=== PATIENT | male | born 1950 | race Caucasian/White ===

== ENCOUNTER 2016-12-21 05:39 | Inpatient (IN) ==
[2016-12-21] MEDS ORDERED: *HR* Heparin 5,000 UNIT/ML VIAL IVP PRN ×2 (08:00)
[2016-12-21] MEDS ORDERED: 0.9 % Sodium Chloride 1,000 ML IVC SCH (08:00)
[2016-12-21] MEDS ORDERED: Heparin 25,000 UNIT/500 ML D5W 25,000 UNIT/500 ML MLS IVC SCH (08:00)
[2016-12-21] MEDS ORDERED: *HR* Morphine 2 MG/ML SYRINGE IVP PRN ×3 (08:03→08:44)
[2016-12-21] MEDS ORDERED: Acetaminophen 325 MG TABLET PO PRN (08:05)
[2016-12-21] MEDS ORDERED: Ondansetron 4 MG/2 ML VIAL IVP PRN (08:05)
[2016-12-21] MEDS ORDERED: Naloxone 0.4 MG/ML INJ IVP PRN (08:05)
[2016-12-21] MEDS ORDERED: MOM Conc 10 ML UD.LIQ PO PRN (08:05)
[2016-12-21] MEDS ORDERED: *HR* LORazepam 2 MG/ML VIAL IVP PRN (08:13)
[2016-12-21] MEDS: Nicotine 21 MG PATCH.TD24 TD SCH (08:36)
--- NOTE | 2016-12-21 08:40 | Internal Med History&Physical ---
<Vanessa Guerin - Last Filed: 12/21/16 11:22> Date of Encounter: 12/21/16 Time of Encounter: 07:50 Assessment and Plan (1) NSTEMI (non-ST elevated myocardial infarction) Current visit: No Status: Acute Pt has a 2 day history of R shoulder pain that awakened him at 0250 this a.m. Pt also reports mid-sternal chest pressure/heaviness without radiation. Pain is constant, 7/10. Also reports diaphoresis and nausea this a.m, no SOB. These symptoms are consistent with the symptoms of his previous NH, for which he had 2 stents placed at [place] 5 years ago. Pt took aspirin 325mg prior to going to ED. He became hypotensive after 1 NTG sl, resolved after 250ml bolus of IVF. He was given morphine in the ED that he states gave him "some" relief, but pain is back to baseline on arrival to this facility. He was given a heparin bolus and gtt was started in ED, which we will continue. Pt does not take beta chiqui or Plavix currently, they were stopped by his PCP after being on them for some time. He also states that he took Lipitor previously but stopped it due to myalgias, will start on Zocor. Heparin gtt Monitor labs Stat troponin on arrival Stat EKG Morphine 2mg IVP q 4hr prn chest pain consult cardiology Lipid panel A1c Metoprolol 12.5mg po bid ASA 81mg po daily (2) Chest pain Current visit: Yes Status: Acute Plan as above Qualifiers: Chest pain type: chest pain due to myocardial ischemia Ischemic chest pain type: unstable angina pectoris Qualified Code(s): I20.0 - Unstable angina (3) HTN (hypertension) Current visit: Yes Status: Chronic Pt takes Lisinopril 5mg po daily. Will continue. His blood pressure has been WNL so far this admission. Lisinopril 5mg po daily Metoprolol 12.5mg po bid Qualifiers: Hypertension type: essential hypertension Qualified Code(s): I10 - Essential (primary) hypertension (4) ETOH abuse Current visit: Yes Status: Chronic Pt admits to drinking 5 beers daily for "years", however did drink 10 last pm since he had company. He states that he can go a day without drinking without symptoms of withdrawl, but he chooses not to. Ativan prn/ CIWA protocol. (5) Tobacco abuse Current visit: Yes Status: Chronic Currently pt smokes 1 1/2 PPD. He has been an intermittent smoker since high school, but has quit for many years then would start again. He estimates that he has smoked about 25 years total. He is not interested in smoking cessation, however, we should provide it prior to discharge. Nicotine patch during admission Smoking cessation education Internal Medicine - H&P: HPI Chief complaint: chest pain, arm pain x 2 days Admitted From: Home Plans for Post Hospital Care: Home History of present illness: Mr. Bear is a 66 year old male with history of previous NH and stent placement 5 years ago, HTN, iliac artery aneurysm, and atherosclerosis. He has a 2 day history of R arm and shoulder pain that awakened him this am at 0250. He took his bp at that time and was hyptensive, 70s/40s. Pt got up from bed and began having midsternal constant 7/10 chest pain, described as heaviness or pressure and he got minimal relief with morphine in [facility]. These symptoms are consistent with the symptoms he had with his prior NH. Before calling EMS, he was diaphoretic and nauseated, denies SOB. He was on Plavix and a beta chiqui after last NH and PCP d/cd it after being on it for a few years. Pt also took Lipitor in the past and stopped taking it due to myalgias. EKG showed T wave inversion in leads I, AVL, and V6, incomplete bundle branch block, and no ST elevation. Initial troponin was 0.11ng/dl, repeat done stat after assessment, as well as stat EKG for continued chest pain. Pt was given NTG sl at [facility] which his BP did not tolerate and ASA 325mg was taken by patient before he went to the ED. He received a 4,000unit bolus of heparin in the ED and a drip was started which we will maintain. Cardiology was consulted when he arrived. He is a 1 1/2 PPD smoker and admits to drinking 5 beers daily. Past Med Surg Social Fam HX - Past Medical History Medical history: hypertension, myocardial infarction Psychiatric history: no psych history - Social History Smoking Status: Never smoker Smokeless Tobacco Status: No Alcohol use: recent Drug use: none - Family History Mother Name: Parul Age: 60 Family Member Ethnicity: Non- Living Status: Age at : 60 Cause of : breast cancer Internal Medicine - H&P: Meds Ascorbic Acid [Vitamin C] 100 mg PO QAM 12/21/16 [History] Aspirin [Ecotrin] 325 mg PO QAM 12/21/16 [History] Lisinopril [Zestril] 5 mg PO DAILY 12/21/16 [History] Multivitamin [Multivitamins] 1 cap PO QAM 12/21/16 [History] Ubidecarenone [Coq10] 50 mg PO QAM 12/21/16 [History] Allergies No Known Allergies Allergy (Verified 12/21/16 04:50) All Systems PM: A 10-system review of systems was performed and is negative for pertinent findings except as documented above in the HPI. - Constitutional Constitutional: no excessive sweating, no fatigue, no fever(s), no night sweats , no weakness - Cardiovascular Cardiovascular ROS IM: chest pain, diaphoresis, no dyspnea, no edema, no irregular heart rhythm, no lightheadedness, no orthopnea, no palpitations, no syncope - Respiratory Respiratory: no cough, no dyspnea, no wheezing, no pain on inspiration, no chest congestion - Gastrointestinal Gastrointestinal: loose stools, nausea, no vomiting - Musculoskeletal Musculoskeletal ROS IM: myalgias Additional comments: Pt c/o R shoulder pain for last 2 days, that pain awakend him this a.m. - Constitutional Vitals: Temp Pulse Resp BP Pulse Ox 97.8 F 83 16 134/91 96 12/21/16 08:05 12/21/16 08:05 12/21/16 08:05 12/21/16 08:05 12/21/16 08:05 General appearance: Present: cooperative, A&O X 3, pleasant, no acute distress - ENT ENT exam: Present: mucous membranes moist, normal exam - Neck Neck exam general surgery: Absent: lymphadenopathy, tenderness - Respiratory Respiratory exam: Present: CTAB. Absent: accessory muscle use, chest wall tenderness, decreased breath sounds, respiratory distress - Cardiovascular Cardiovascular exam: Present: RRR, +S1, +S2. Absent: diastolic murmur, JVD, systolic murmur - GI/Abdominal GI/Abdominal exam: Present: hyperactive bowel sounds, soft. Absent: tenderness - Extremities Exam Extremities exam: Present: full ROM, normal capillary refill, normal inspection , warm, radial pulses palpable and symetrical. Absent: calf tenderness, pedal edema, tenderness Additional comments: Roshan pedal pulses palpable, +2 - Neurological Exam Neurological exam: Present: alert, oriented X3, no focal deficits, strengths equal and symetr throughout <Maricruz Fernandez - Last Filed: 12/21/16 11:36> Internal Medicine - H&P: HPI History of present illness: Mr. Bear is a 66 year old male All Systems PM: A 10-system review of systems was performed and is negative for pertinent findings except as documented above in the HPI. - Constitutional Vitals: Temp Pulse Resp BP Pulse Ox 97.8 F 83 16 134/91 96 12/21/16 08:05 12/21/16 08:05 12/21/16 08:05 12/21/16 08:05 12/21/16 08:05 Internal Med - H&P Results - Labs Labs: Cardiac Enzymes 12/21/16 Range/Units 08:22 Troponin I 0.35 H* (0-0.03) ng/mL - Attending Attestation I examined this patient and reviewed laboratory, imaging and all diagnostic data. My medical decision-making was reviewed with JLUIS Guerin. I agree with the documented findings, disposition and treatment plan as described above. 66- year-old male with past medical history of CAD status post stents in the past who comes with chest pain. In [facility] ED, troponin was 0.11. EKG showed T- wave inversion in lead I, AVL, V5-V6. Chest dementia no acute process. Physical examination reveals chest CTAB, heart RRR, no LE edema. He was started on heparin drip and received nitroglycerin sublingual. Shortly after, he developed hypotension and was given IV fluids. He admits being noncompliant with medical patients. A/p 1. Non-STEMI. I spoke with cardiology and they recommended nothing by mouth, continue IVF and heparin drip. They will evaluate the patient for LHC. ASA, metoprolol and zoco given history of myalgias with lipitor. 2. HTN. holding home dose of lisinopril.
--- NOTE | 2016-12-21 09:38 | Cardiology Consult Note ---
Date of Encounter: 12/21/16 Time of Encounter: 09:38 Assessment and Plan (1) NSTEMI (non-ST elevated myocardial infarction) Current Visit: No Status: Acute Troponin 0.11, 0.35. Pt with now bilateral shoulder pain and midsternal chest heaviness/pressure. Similar to previous [place]. Chest pain /10. BP did not tolerate nitro. Vitals stable. EKG changes that indicate ischemia--ST depression. Recommend [facility]. R/B/A discussed and pt is agreeable. [facility] today. Check echo to evaluate structure and function. Continue heparin gtt. Continue ASA, Statin, BB. Plavix load. (2) CAD (coronary artery disease) Current Visit: Yes Status: Acute Hx of RCA stents 5 years ago. ASA, Plavix, Statin, BB. Qualifiers: Coronary Disease-Associated Artery/Lesion type: rincon artery [place] vs. transplanted heart: rincon heart Associated angina: with unstable angina Qualified Code(s): I25.110 - Atherosclerotic heart disease of rincon coronary artery with unstable angina pectoris (3) HTN (hypertension) Current Visit: Yes Status: Chronic Currently controlled. Continue to monitor and adjust as necessary. Qualifiers: Hypertension type: essential hypertension Qualified Code(s): I10 - Essential (primary) hypertension (4) Iliac artery aneurysm, right Current Visit: Yes Status: Chronic Testing reviewed from 2014--CT ABD/Pelvis showed aneurysmal dilation of right common iliac artery 3.8 x 3.9. US showed it was partially thrombosed. Saw vascular 10/2015 to follow-up on results. No follow-up since then. Was supposed to have had a repeat CT 6 months from that time. Recommend rechecking. Discussion w patient/family: The assessment and plan as outlined above was discussed with the patient and/or family members who expressed understanding and agreement. All questions were answered. Thank you for involving us in the care of your patient. Please call with any questions. I will discuss all the above with Dr. Cherry and make changes as necessary. History of Present Illness Consult date: 12/21/16 Requesting physician: Vanessa Guerin Consult reason: NSTEMI Chief complaint: Chest pain History of present illness: Mr. Bear is a 66 year old male with hx of CAD s/p [place] and stent placement 5 years ago at [place], HTN, iliac artery aneurysm, and atherosclerosis. He has a 2 day history of R arm and shoulder pain that awakened him this am at 0250. He took his bp at that time and was hypertensive. 20 minutes later he began having midsternal constant 7/10 chest pain, described as heaviness/pressure and he got minimal relief with morphine in [place] ED. These symptoms are consistent with the symptoms he had with his prior [place]. Before calling EMS, he was diaphoretic and nauseated, denies SOB. He was on Plavix and a beta chiqui after last [place] and PCP d/cd it after being on it for a few years. Pt also took Lipitor in the past and stopped taking it due to myalgias. EKG showed T wave inversion in leads I, AVL, and V6. Initial troponin was 0.11, then 0.35. Pt was given NTG sl at [place] ED which his BP did not tolerate and ASA 325mg was taken by patient before he went to the ED. He received a 4,000unit bolus of heparin in the ED and a drip was started. Cardiology has been consulted. CP currently 7/ 10, stable, resting in bed. Past Med Surg Social Fam HX - Past Medical History Medical history: coronary artery disease, hypertension, myocardial infarction Psychiatric history: no psych history - Past Surgical History Surgical History: angioplasty/stent - Social History Smoking Status: Never smoker Smokeless Tobacco Status: No Alcohol use: recent Drug use: none - Family History Mother Name: Parul Age: 60 Family Member Ethnicity: Non- Living Status: Age at : 60 Cause of : breast cancer Medications and Allergies Ascorbic Acid [Vitamin C] 100 mg PO QAM 12/21/16 [History] Aspirin [Ecotrin] 325 mg PO QAM 12/21/16 [History] Lisinopril [Zestril] 5 mg PO DAILY 12/21/16 [History] Multivitamin [Multivitamins] 1 each PO QAM 12/21/16 [History] Ubidecarenone [Coq10] 50 mg PO QAM 12/21/16 [History] Allergies No Known Allergies Allergy (Verified 12/21/16 04:50) All Systems Review: A 10-system review of systems was performed and is negative for pertinent findings except as documented above in the HPI. - Cardiovascular Cardiovascular: as per HPI, chest pain at rest, chest pain with exertion, diaphoresis, radiating jaw, neck or arm pain - Gastrointestinal Gastrointestinal: nausea Physical Examination Vital Signs, Last 4 Hours Temp Pulse Resp BP Pulse Ox 12/21/16 08:05 97.8 F 83 16 134/91 96 Vital Signs Temp Pulse Resp BP Pulse Ox 12/21/16 08:05 97.8 F 83 16 134/91 96 Intake and Output 12/20/16 12/21/16 12/21/16 23:59 07:59 15:59 Other: Weight 69.4 kg Patient Weight 12/21/16 23:59 Weight 69.4 kg General: Conversant, No Apparent Distress HEENT: Atraumatic, Normocephaly, Mucus Membranes Moist Neck: No JVD, Normal carotid pulses Cardiac: Reg Rate and Rhythm, Normal S1 and S2, No Murmur Lungs: Normal Breath Sounds, No Wheeze, Rales, Rhonchi Neuro: Alert and responsive, No focal deficits noted Abdomen: Soft, Non-Tender Skin: No rashes noted on visualized skin Musculoskeletal: No Chest Wall Tenderness Extremities: No Clubbing, No Cyanosis, No Edema, Normal Pulses Results Lab Results 12/21/16 08:22 Troponin I 0.35 H* Cardiac Enzymes 12/21/16 Range/Units 08:22 Troponin I 0.35 H* (0-0.03) ng/mL - Imaging and Cardiology Chest Xray: report reviewed - EKG Interpretation EKG results cardiology: personally reviewed (New ST depression noted, SR) Consult Discharge Plan - Plan Referrals: NO,PCP [Primary Care Provider] -
[2016-12-21] MEDS ORDERED: Heparin 1,000 UNITS/500 mL NS 500 ML ONE (10:18)
[2016-12-21] MEDS ORDERED: *HR* FentaNYL (PF) 100 MCG/2 ML VIAL ONE (10:18)
[2016-12-21] MEDS ORDERED: *HR* Midazolam HCl 2 MG/2 ML VIAL ONE (10:18)
[2016-12-21] MEDS ORDERED: 0.9 % Sodium Chloride 1,000 ML ONE ×2 (10:18→10:51)
[2016-12-21] MEDS ORDERED: Nitroglycerin 1,000 MCG/10 ML VIAL IV ONE (10:19)
[2016-12-21] MEDS ORDERED: *HR* Heparin 10,000 UNIT/10 ML VIAL ONE (10:19)
--- NOTE | 2016-12-21 10:47 | Pre-Sedation Evaluation ---
Pre-sedation evaluation - Pre-sedation checklist Date of procedure: 12/21/16 Procedure: Heart Cath Recent Vitals: Last Vital Signs Temp 97.8 F 12/21/16 08:05 Pulse 83 12/21/16 08:05 Resp 16 12/21/16 08:05 BP 134/91 12/21/16 08:05 Pulse Ox 96 12/21/16 08:05 H&P (including ROS) documented in medical record: Yes Previous reaction to sedatives/anesthetics: No Dietary Status: NPO after Midnight Dentition: No loose teeth or bridges Possible difficult airway: No ASA Classification *see protocol: CLASS III-Severe systemic disease Plan of Care: Pt appropriate candidate for procedure/moderate/conscious sedation , Risks/benefits of procedure/sedation discussed w/ patient/family, If not NPO; Risk of intake outweiged by necessity to perform procedure
[2016-12-21] MEDS ORDERED: Tirofiban 5 MG/100ML 0 MG/0 ML BAG IV ONE (11:04)
[2016-12-21] MEDS ORDERED: *HR* Bivalirudin 250 MG VIAL IVC ONE (11:10)
[2016-12-21] MEDS ORDERED: *HR* Ticagrelor 90 MG TABLET ONE (11:32)
[2016-12-21] MEDS ORDERED: Ondansetron 4 MG/2 ML VIAL ONE (11:33)
--- NOTE | 2016-12-21 11:56 | Invasive Diagnostic Lab ---
Name: Luca Bear Date of Study: 12/21/2016 Date: 1950 Ht: 163.0 cm /64.2 in Medical Record#: [id number] Age: 66 Wt: 69. kg / 152.12 lb Account/Order#: [id number] Gender: Male BSA: 1.74 Order #: [id number] Fluoro Dose: 28 mGy BMI: 25.97 Procedure Physician: Power Gray MD Referring MD: Referring MD: Procedures Performed: LEFT HEART CATH Stent w/ PTCA Single Major Vessel Indications: Non-Stemi Impressions: There is severe one vessel coronary artery disease. The left ventricle is normal and has normal contractility EF 55% Patient had successful PTCA/Drug-Eluting Stent placement in the mid RCA. Recommendations: Optimal medical therapy of patient's disease.. Aggressive risk factor modification. Patient being referred for cardiac rehab. History/Risk Factors: CAD Hypertension Prior [place] Previous PCI Procedure Access obtained in the left Femoral artery by percutaneous puncture Patient had successful PTCA/Drug-Eluting Stent placement in the mid RCA. Complications: None Contrast: Isovue 130ml Closure Device: Perclose ProGlide Hemodynamics: Pressures Site Systolic/ A Wave Diastolic/ V Wave End Diastolic/ Mean HR AO 127 79 99 84 AO 107 86 96 82 LV 131 6 16 87 LV 106 42 54 89 AO 116 92 104 90 LV Ventriculography Ejection Method: LV Gram Ejection Fraction: 55% Wall Motion: GUEVARA Anterobasal Normal Anterolateral Normal Apical: Normal Inferoapical Normal Inferobasal Mild Hypokinesis Coronary Dominance: right Lesion Findings/Interventions * Left Main Coronary Artery There is a 20% stenosis in the LMCA. * Left Anterior Descending There is a 20% stenosis in the Mid LAD. There is a 50% stenosis in the 1st Diagonal. * Circumflex There is a 20% stenosis in the Mid Circumflex. There is a 20% stenosis in the 1st Marginal. * Right Coronary Artery The Proximal RCA has patent stents present from a previous procedure. There is a 20 mm long, 100% stenosis in the Mid RCA. The lesion has a RAVI flow of 0 and has no thrombus present. An intervention was performed on the Mid RCA with a final stenosis of 0%. There were no lesion complications. The final RAVI flow was 3. Interventional Device(s) Vessel Segment Type Name Diameter (mm) Length (mm) Mid RCA Balloon Emerge Monorail 2.5 20 Mid RCA Drug Eluting Stent Promus Premier Rx 2.75 20 Mid RCA Balloon Emerge Monorail 2.75 20 Mid RCA Balloon NC Emerge 2.75 20 Updated by Chanelle Liriano RT (R) on 12/21/2016 11:49:05 AM Power Gray MD electronically signed on 12/21/2016 11:50:24 AM with status of Final
--- NOTE | 2016-12-21 11:56 | Invasive Diagnostic Lab Proc ---
Name: Luca Bear Date of Study: 12/21/2016 Date: 1950 Ht: 64.2in Medical Record#: [id number] Age: 66 Wt: 152.12lb Gender: Male BSA: 1.74 Order #: [id number] BMI: 25.97 Physicians Procedure Physician: Power Gray MD Referring MD: Referring MD: Staff Name Position Time In Sites, Chanelle RT (R) Monitor 10:59 AM Daya Castillo RT Scrub 10:59 AM Brian Diaz RN Net Ui Developer 10:59 AM Indications Indication Non-Stemi Procedures Performed Procedure L HRT ARTERY/VENTRICLE ANGIO PRQ CARD ROSA STENT W/ANGIO 1 VSL Pre-Procedure Checklist Informed consent is complete signed and on chart. H\\T\\P is on chart. ID band is on and ID verified with patient. Patient NPO for procedure The procedure was described for the patient and questions were answered. Blood Pressure: 134/91 ECG is on chart. Plan of Care Patient will tolerate the procedure without complications. Adequate level of comfort will be maintained. Hemodynamics will remain stable Patient will recover from procedure without complications. Respiratory function will be maintained. Cardiac rhythm will remain stable. Patient temperature will be maintained. Patient and/or family have verbalized understanding of the procedure. Patient Education Chief Complaint/Reason for Test: Cardiac Cath Developmental Category: Geriatric (65+ years) Developmentally Appropriate for Age: Yes Learning Barriers: None Education Needs: Procedure Education Method: Verbal Information Taught: Cardiac Cath Educational Evaluation: Able to repeat information Intravenous Access Time IV Size Location DC'd Fluid/Drip Rate Units RN 10:35 AM 20g 1 11/20" Patent On Arrival Lt Arm 0.9NaCl 25 ml/hr Brian Diaz RN Allergies No Known Allergies Vital Signs Time BP (mmHg) HR (bpm) O2 Sat. RR (bpm) LOC 10:36 AM 134 / 91 83 96 % 16 5 = Fully awake and oriented or at pre-proc level 11:01 AM / % 5 = Fully awake and oriented or at pre-proc level 10:56 AM 117 / 73 70 95 % 13 11:01 AM 132 / 88 76 98 % 21 11:06 AM 125 / 81 89 86 % 18 11:11 AM 135 / 89 89 98 % 16 11:17 AM 96 / 74 50 100 % 15 11:20 AM 87 / 54 69 99 % 14 11:21 AM 91 / 62 49 98 % 13 11:23 AM 82 / 54 74 99 % 15 11:26 AM 97 / 60 71 98 % 16 11:32 AM 128 / 69 72 99 % 19 11:37 AM 134 / 78 74 98 % 17 Procedural Medications Time Medication Dose Units Method Given By 11:00 AM Oxygen 2 L/min nasal cannula Brian Diaz RN 11:00 AM Versed 1 mg Intravenous Brian Diaz RN 11:01 AM Fentanyl 50 mcg Intravenous Brian Diaz RN 11:02 AM Lidocaine 2% 18 ml Subcutaneous Power Gray MD 11:03 AM Versed 1 mg Intravenous Brian Diaz RN 11:03 AM Fentanyl 50 mcg Intravenous Brian Diaz RN 11:06 AM Oxygen 5 L/min nasal cannula Brian Diaz RN 11:13 AM Angiomax 0.75mg/kg bolus: 10.5 ml Intravenous Brian Diaz RN 11:13 AM Angiomax 1.75mg/kg/hr: 24.5 ml Intravenous Brian Diaz RN 11:24 AM Dopamine 10 mg/kg/min Intravenous Brian Diaz RN 11:34 AM Dopamine 2.5 mg/kg/min Intravenous Brian Diaz RN 11:35 AM Zofran 4 mg Intravenous Brian Diaz RN 11:35 AM Brilinta 180 mg Orally Brian Diaz RN 11:37 AM Dopamine mg Dc'd Brian Diaz RN Thea Score Preprocedure Postprocedure Activity 2- Moves 4 extremities sustained head lift Activity 2- Moves 4 extremities sustained head lift Circulation 2- SBP +/= 20 points of pre-anesthetic level Circulation 2- SBP +/= 20 points of pre-anesthetic level Consciousness 2- Awake and alert oriented x 3 Consciousness 2- Awake and alert oriented x 3 O2 Saturation 2- Able to maintain O2 satruation of 92% on room air O2 Saturation 2- Able to maintain O2 satruation of 92% on room air Respiratory 2- Able to deep breathe and cough well Respiratory 2- Able to deep breathe and cough well Total Score 10 Total Score 10 Contrast Agent: Isovue Diagnostic Contrast: 130 ml Total Contrast: 130 ml Fluoro Dose: 28 mGy Procedure Log Time Note Enter By 10:32 AM CathStat 10:56 AM Vitals capture started with the following parameters, Patient=Adult, Interval=5 min, Initial Yjylcrjs=748 mmHg, Deflation Rate=5 mmHg, Cuff placed on Left Leg 10:56 AM Case Start 10:56 AM HR=70 bpm, EVMK=934/73 mmhg, SpO2=95.0 %, Resp=13 B/min, Comment=nsr 10:59 AM Pt arrived to laborer demolition 2 at 10:58 csmith 10:59 AM Recorded ECG: HR=55 Condition=Condition 1 10:59 AM Chanelle Liriano RT (R) Position: Monitor Time in: :59 csmith 10:59 AM Daya Castillo RT Position: Scrub Time in: :59 csmith 10:59 AM Brian Diaz RN Position: Net Ui Developer Time in: 10:59 csmith 10:59 AM Patient charges- Angio tray pack, Navilyst 3mm J, Pulse Oximetry and ACIST tubing and transducer csmith 10:59 AM Case Delayed No csmith 10:59 AM Physician arrived 10:59 csmith 10:59 AM Sign in performed according to hospital policy. csmith 10:59 AM Procedure start 10:59 csmith 11:00 AM Hair removed from procedure site in procedure lab using clippers. Bilateral groin prepped with Chloraprep by Chanelle Liriano (R) then patient draped. Skin intact. csmith 11:00 AM Time: 11:00 Oxygen on at 2 L/min per nasal cannula by Brian Diaz RN [facility] 11:00 AM Time: 11:00 Versed 1 mg Intravenous Given by Brian Diaz RN [facility] 11:00 AM Pressure channel 1 zero failed. 11:01 AM Pressure channel 1 zeroed. 11: AM Time: 11: Fentanyl 50 mcg Intravenous Given by Brian Diaz RN [facility] 11: AM Time: 11:01 Patient comfortable and pain free: Yes csmith 11:01 AM HR=76 bpm, ZYLL=314/88 mmhg, SpO2=98.0 %, Resp=21 B/min 11:01 AM Time: 11:LOC: 5 = Fully awake and oriented or at pre-proc level csmith 11:02 AM Clinical Presentation: Non-STEMI csmith 11:02 AM Time out performed according to hospital policy [facility] 11:02 AM Time: 11: 18 ml Lidocaine 2% to left groin Subcutaneous Given by Power Gray MD [facility] 11:03 AM Access obtained by percutaneous puncture. 6Fr 10cm Terumo [place] sheath placed in left Femoral artery. [id number] [facility] 11:03 AM Time: 11:03 Versed 1 mg Intravenous Given by Brian Diaz RN [facility] 11:03 AM Time: 11:03 Fentanyl 50 mcg Intravenous Given by Brian Diaz RN [facility] 11:03 AM 0.035 145cm Navilyst 3mmJ wire [id number] [facility] 11:04 AM 5Fr FL 4 catheter inserted over the wire [facility] 11:04 AM Wire removed [facility] 11:04 AM Recorded Pressure: Ao, HR=84, Condition=Condition 1 (Aorta) Ao 127/79/99 11:04 AM LCA angiography performed in multiple views. [facility] 11:06 AM Time: 11:06 Oxygen on at 5 L/min per nasal cannula by Brian Diaz RN [facility] 11:06 AM wire reinserted catheter removed [facility] 11:06 HR=89 bpm, QVFF=496/81 mmhg, SpO2=86.0 %, Resp=18 B/min 11:07 AM 5Fr FR 4 catheter inserted over the wire [facility] 11:07 Wire removed [facility] 11:07 RCA angiography performed in multiple views. [facility] 11:07 AM Recorded Pressure: Ao, HR=82, Condition=Condition 1 (Aorta) Ao 107/86/96 11:09 AM wire reinserted catheter removed [facility] 11:09 AM 5Fr Pigtail catheter inserted over the wire [facility] 11:09 AM Catheter selectively placed in left [facility] 11:10 AM Bolus angiogram of left Ventricle complete: 10 ml/sec for a total of 20 mls [facility] 11:10 AM Recorded Pressure: LV, HR=87, Condition=Condition 1 (Left Ventricle) LV 131/6/16 11:11 AM Recorded Pressure: LV, Ao, HR=90, Condition=Condition 1 (Left Ventricle) LV 106/42/54, (Aorta) Ao 116/92/104 11:11 AM wire reinserted catheter removed [facility] 11:11 AM HR=89 bpm, TRDU=467/89 mmhg, SpO2=98.0 %, Resp=16 B/min 11:12 AM PCI Status Urgent [facility] 11:12 AM PCI Indication: PCI for high risk Non-STEMI or unstable ang[facility] 11:12 AM PCI lesion in Mid RCA. Pre Stenosis: 100 Pre RAVI Flow: tsites 11:12 AM PCI lesion in Mid RCA. tsites 11:12 AM 6Fr JR 4 Runway guide catheter was used to cannulate the PCI vessel successfully. reused? No tsites 11:12 AM Inflation device was opened. tsites 11:13 AM .014 Prowater 180cm guide wire across target lesion- successful. reused? No tsites 11:13 AM Time: 11:13 Angiomax 0.75mg/kg bolus: 10.5 ml Intravenous Given by Brian Diaz RN Larsen pump tsites 11:13 AM Time: 11:13 Angiomax 1.75mg/kg/hr: 24.5 ml Intravenous Given by Brian Diaz RN Larsen pump tsites 11:14 AM Coronary Dominance: right tsites 11:14 AM Lesion found in LMCA. Pre Stenosis: 20 Pre RAVI Flow: tsites 11:14 AM Lesion found in Mid LAD. Pre Stenosis: 20 Pre RAVI Flow: tsites 11:14 AM Lesion found in 1st Diagonal. Pre Stenosis: 50 Pre RAVI Flow: tsites 11:14 AM Lesion found in Mid Circumflex. Pre Stenosis: 20 Pre RAVI Flow: tsites 11:15 AM Lesion found in 1st Marginal. Pre Stenosis: 20 Pre RAVI Flow: tsites 11:15 AM Left Main Coronary Artery with 20% stenosis tsites 11:15 AM Mid/Distal Left Anterior Descending Coronary Artery and diagonal branches with 50% stenosis. If graft is supplying this area, % stenosis tsites 11:15 AM Circumflex, Obtuse Marginal, Left Posterior Descending, and Left Posterolateral Coronary Arteries with 20 % stenosis. If graft is supplying this area, % stenosis tsites 11:15 AM Right Coronary, Right Posterior Descending Arteries with Right Posterolateral and Acute Marginal branches with 100 % stenosis. If graft is supplying this area, % stenosis tsites 11:17 AM HR=50 bpm, NIBP=96/74 mmhg, HkA5=388 %, Resp=15 B/min 11:18 AM 2.5 mm x 20 mm Emerge Monorail balloon across target lesion- successful. reused? No tsites 11:19 AM Balloon inflated @ 16 marcie for 18 seconds tsites 11:20 AM Balloon catheter removed intact. tsites 11:20 AM NIBP STAT measurement started. 11:20 AM 2.75mm x 20mm Promus Premier Rx drug-eluting stent across target lesion- successful Lot #[id number] tsites 11:20 AM HR=69 bpm, NIBP=87/54 mmhg, SpO2=99 %, Resp=14 B/min 11:21 AM HR=49 bpm, NIBP=91/62 mmhg, SpO2=98 %, Resp=13 B/min 11:22 AM .014 High-Torque Iron man 190cm guide wire across target lesion- successful. reused? No tsites 11:22 AM NIBP STAT measurement started. 11:23 AM HR=74 bpm, NIBP=82/54 mmhg, SpO2=99 %, Resp=15 B/min 11:23 AM Stent delivery system removed intact. tsites 11:25 AM Time: 11:24 Dopamine 10 mg/kg/min Intravenous Given by Brian Diaz RN Larsen pump tsites 11: AM 2.75 mm x 20 mm Emerge Monorail balloon across target lesion- successful. reused? No tsites 11: AM NIBP STAT measurement started. 11:26 AM Balloon inflated @ 12 marcie for 9 seconds tsites 11: AM HR=71 bpm, NIBP=97/60 mmhg, SpO2=98.0 %, Resp=16 B/min 11: AM Balloon catheter removed intact. tsites 11: AM 2.75x20 promus premier stent reinserted tsites 11: AM ironman wire removed tsites 11: AM Stent deployed @ 14 marcie for 10 seconds tsites 11:28 AM Stent balloon reinflated @ 14 marcie for 7 seconds tsites 11:30 AM Stent delivery system removed intact. tsites 11:30 AM 2.75 mm x 20mm NC Emerge balloon across target lesion- successful. reused? No tsites 11: AM Balloon inflated @ 14 marcie for 5 seconds tsites 11: AM Balloon inflated @ 20 marcie for 8 seconds tsites 11:32 AM Balloon inflated @ 18 marcie for 7 seconds tsites 11:32 AM HR=72 bpm, TOCS=668/69 mmhg, SpO2=99 %, Resp=19 B/min 11:32 AM Balloon catheter removed intact. tsites 11:32 AM Guide wire removed intact. tsites 11:35 AM Time: 11:34 Dopamine 2.5 mg/kg/min Intravenous Given by Brian Diaz RN Larsen pump tsites 11:35 AM Time: 11:35 Zofran 4 mg Intravenous Given by Brian Diaz RN tsites 11:35 AM Time: 11:35 Brilinta 180 mg Orally Given by Brian Diaz RN tsites 11:36 AM Bolus angiogram of left Femoral complete: 2 ml/sec for a total of 4 mls tsites 11:36 AM Procedure completed at 11:36 tsites 11:36 AM Sign out completed: Radiation Dose 28 mGy Fluoro Time: 7.3 Isovue 370 - 500ml contrast 130 ml given by Power Gray MD. Complications: NoneCardiac Rehab Consult needed: YesConfirmed administered medications: Yes tsites 11:36 AM Isovue 370 - 500ml,1 Bottle(s) used. tsites 11:37 AM Arterial sheath pulled, perclose closure device used and was Successful S/N. tsites 11:37 AM Post ECG NSR tsites 11:37 AM HR=74 bpm, YFAB=735/78 mmhg, SpO2=98 %, Resp=17 B/min 11:37 AM Post Blood Pressure 134/78 tsites 11:37 AM 11:37 Post Pulses Bilateral DP \\T\\ PT 2+ tsites 11:37 AM Information taught Cardiac Cath, PCI, and Perlose tsites 11:38 AM Time: 11:37 Dopamine mg Dc'd Given by Brian Diaz RN Larsen pump tsites 11:38 AM Education needs Procedure, Plan of Care, and Responsibilities of Patient in Care tsites 11:38 AM Learning barriers :None tsites 11:38 AM Education Methods Verbal tsites 11:38 AM Education evaluation Able to repeat information tsites 11:38 AM Site status No bleeding/hematoma - Lt Groin as reported by Daya Castillo RT at 11:38 tsites 11:38 AM Opsite applied tsites 11:38 AM Plavix, Effient or Brilinta given Yes tsites 11:40 AM manaul presuure held for 5 mins per Daya Castillo tsites 11:46 AM Report given to brijesh TAYLOR Pt taken to 2N Room #3. 11:46 tsites 11:46 AM Family placed in consult room. tsites 11:46 AM Patient out of room: 11:46 tsites Complications Complication None Hemodynamics Pressures Site Systolic/A Wave Diastolic/V Wave Mean AO 127 79 99 AO 107 86 96 LV 131 6 16 LV 106 42 54 AO 116 92 104 Post Procedure Information Blood Pressure: 134/78 mmHg Rhythm: NSR Post procedural instructions were given Closure Device Time Device Success/Fail 12/21/2016 11:46:00 AM Perclose ProGlide Successful Site Checks Time Location Status Staff Sheath In? Note 11:38 AM Lt Groin No bleeding/hematoma Daya Castillo RT Pulses Time Site Pre-Procedure Post-Procedure Note 12/21/2016 10:36:00 AM Bilateral radial 2+ 12/21/2016 10:36:00 AM Bilateral DP 1+ 11:37:00 AM Bilateral DP \\T\\ PT 2+ Updated by Chanelle Liriano, RT (R) on 12/21/2016 11:50:17 AM Chanelle Liriano RT electronically signed on 12/21/2016 11:50:50 AM with status of Final
[2016-12-21 19:38] LABS: Hemoglobin A1C 4.9 %
[2016-12-21] MEDS: *HR* Ticagrelor 90 MG TABLET PO SCH (21:04)
[2016-12-22 07:29] LABS: Basophils # 0.1 K/mcL (0.0-0.2); Basophils % 1.4 %; Eosinophils # 0.3 K/mcL (0.0-0.6); Eosinophils % 4.3 %; Hematocrit 40.4 % (37.5-50.1); Immature Granulocytes % 0.4 % (0-4); Lymphocytes # 1.8 K/mcL (0.6-4.6); Lymphocytes % 24.3 %; Mean Corpuscular HGB Conc 34.7 g/dL (31.6-35.5); Mean Corpuscular Hemoglobin 32.3 pg (28.0-33.3); Mean Corpuscular Volume 93.3 fL (83.0-100.0); Mean Platelet Volume 9.9 fL (9.4-12.4); Monocytes # 0.5 K/mcL (0.0-1.3); Monocytes % 7.3 %; Neutrophils # 4.5 K/mcL (1.6-8.9); Platelet Count 122 K/mcL (140-400); Red Blood Count 4.33 M/mcL (4.19-5.50); Red Cell Distribution Width 14.2 % (11.5-14.5); Segmented Neutrophils % 62.3 %
[2016-12-22 07:42] LABS: BUN/Creatinine Ratio 12 (6-26); Blood Urea Nitrogen 13 mg/dL (8-26); Calcium 8.5 mg/dL (8.6-10.8); Carbon Dioxide 23 mEq/L (19-29); Chloride 106 mEq/L (98-109); Glucose 102 mg/dL (70-99); Osmolality,Calculated 282 (280-300); Potassium 4.3 mEq/L (3.5-4.5); Sodium 136 mEq/L (136-145); eGFR For African Americans > 60 (> 60); eGFR For Non-African Americans > 60 (> 60)
[2016-12-22] MEDS: *HR* Ticagrelor 90 MG TABLET PO SCH (07:44)
[2016-12-22] MEDS: Nicotine 21 MG PATCH.TD24 TD SCH (07:45)
[2016-12-22 07:46] VITALS: BP 164/98
[2016-12-22 07:47] LABS: Chol/HDL Ratio 3.3 (0-4.9)
[2016-12-22 08:23] LABS: Basophils # 0.1 K/mcL (0.0-0.2); Basophils % 0.9 %; Eosinophils # 0.4 K/mcL (0.0-0.6); Eosinophils % 4.7 %; Hematocrit 42.9 % (37.5-50.1); Hemoglobin 14.6 g/dL (12.9-16.9); Immature Granulocytes % 0.1 % (0-4); Lymphocytes # 1.9 K/mcL (0.6-4.6); Mean Corpuscular Hemoglobin 32.2 pg (28.0-33.3); Mean Corpuscular Volume 94.5 fL (83.0-100.0); Monocytes # 0.6 K/mcL (0.0-1.3); Monocytes % 7.1 %; Neutrophils # 4.8 K/mcL (1.6-8.9); Platelet Count 129 K/mcL (140-400); Red Blood Count 4.54 M/mcL (4.19-5.50); Red Cell Distribution Width 14.3 % (11.5-14.5); Segmented Neutrophils % 62.2 %
--- NOTE | 2016-12-22 08:27 | ECHO - Doppler Report ---
Echocardiogram Name: Luca Bear Date of Study: 12/22/2016 Date: 1950 Ht: 64.0 in Medical Record#: [id number] Age: 66 Wt: 152.0 lb Gender: Male BSA: 1.74 Order #: [id number] Location: [facility] Room #: 2N03 Reading Physician: Wyatt Acosta DO, FACC, EMMA, MARTA Lead Mason Tender: Tatiana Landeros RVT, RDCS Ordering Physician: Vanessa Guerin CNP Primary Physician: Chino Greco MD Indications: Myocardial infarction Impressions: LVEF 55-60%. Normal LV chamber size and function. Mild concentric left ventricular hypertrophy. Atypical septal motion consistent with bundle branch block. Indeterminate diastolic function. Normal right ventricular structure and function. Mild aortic regurgitation. No evidence of pulmonary hypertension. Findings: Study Quality * Technically adequate exam. ECG Findings * Sinus rhythm with BBB. Left Ventricle * LVEF 55-60%. * Normal LV chamber size and function. * Mild concentric left ventricular hypertrophy. * Atypical septal motion consistent with bundle branch block. * Indeterminate diastolic function. Right Ventricle * Normal right ventricular structure and function. Left Atrium * Mildly dilated left atrium. Right Atrium * Normal right atrial size. Interatrial Septum * No evidence of PFO by color Doppler. Aortic Valve * Trileaflet aortic valve. * Moderately sclerotic aortic valve leaflets. The left coronary cusp is focally calcified. * Mild aortic regurgitation. * No aortic stenosis. Mitral Valve * Normal mitral valve structure and function. * No mitral stenosis. * Trace mitral regurgitation. Tricuspid Valve * Normal tricuspid valve structure and function. * Trace tricuspid regurgitation. * No evidence of pulmonary hypertension. Pulmonic Valve * Normal pulmonic valve structure and function. * No pulmonic regurgitation. Aorta * Normally sized aortic root. Pericardium * The pericardium appears normal. IVC * Normal IVC dimensions and inspiratory collapse. Pulmonary Artery * Normal visualized portions of the main pulmonary artery. History Hypertension Family History of CAD History of CAD/PTCA Myocardial Infarction Measurements: BP: 147/ 96 2D Normal Values IVSd: 1.30 cm 0.6 - 1.0 cm LVIDd: 4.00 cm 3.7 - 5.6 cm LVPWd: 1.30 cm 0.6 - 1.1 cm LVIDs: 2.90 cm 1.5 - 3.6 cm AO: 2.90 cm < 4.0 cm LA: 3.50 cm 2.0 - 4.0cm %FS: 27.50 cm >25 % LA volume: 40 Mitral Valve Peak E:.83 m/sec Peak A:.66 m/sec E/A Ratio:1.3 Aortic Valve AI pressure Half-time: 793.00 msec Tricuspid Valve TV Regurg Peak Grad: 19.00mmHg TV Regurg Peak Jose: 2.20m/sec Updated by Wyatt Acosta DO, JAMAL, EMMA, MARTA on 12/22/2016 8:22:47 AM electronically signed on 12/22/2016 8:23:13 AM with status of Final Wall Motion [place]: 1=Normal, 2=Hypokinesis, 3=Akinesis, 4=Dyskinesis, 5=Aneurysmal, 6=Hyperkinetic, X=Not Visualized (Blank)=Missing
[2016-12-22 08:34] LABS: BUN/Creatinine Ratio 11 (6-26); Blood Urea Nitrogen 12 mg/dL (8-26); Calcium 8.8 mg/dL (8.6-10.8); Carbon Dioxide 25 mEq/L (19-29); Chloride 104 mEq/L (98-109); Glucose 100 mg/dL (70-99); Osmolality,Calculated 284 (280-300); Sodium 137 mEq/L (136-145); eGFR For African Americans > 60 (> 60); eGFR For Non-African Americans > 60 (> 60)
[2016-12-22] MEDS ORDERED: Aspirin 81 MG TAB.CHEW PO SCH (09:00)
[2016-12-22] MEDS ORDERED: ASCORBIC ACID 100 MG PO SCH (09:00)
[2016-12-22] MEDS ORDERED: Multivit/Ca/Min/Fe/FA 1 TAB TABLET PO SCH (09:00)
[2016-12-22] MEDS ORDERED: Ubidecarenone [Coq10] 50 MG PO SCH (09:00)
--- NOTE | 2016-12-22 09:18 | Discharge Summary ---
Date of Encounter: 12/22/16 Time of Encounter: 09:18 - Discharge Diagnosis (1) NSTEMI (non-ST elevated myocardial infarction) Priority: Primary Status: Acute (2) CAD (coronary artery disease) Priority: Secondary Status: Chronic Qualifiers: Coronary Disease-Associated Artery/Lesion type: [place] artery [place] vs. transplanted heart: [place] heart Associated angina: without angina Qualified Code(s): I25.10 - Atherosclerotic heart disease of [place] coronary artery without angina pectoris (3) ETOH abuse Priority: Secondary Status: Chronic (4) HTN (hypertension) Priority: Secondary Status: Chronic Qualifiers: Hypertension type: essential hypertension Qualified Code(s): I10 - Essential (primary) hypertension (5) Iliac artery aneurysm, right Priority: Secondary Status: Chronic (6) Tobacco abuse Priority: Secondary Status: Chronic - Discharge Medications Prescriptions: Aspirin 81 mg PO DAILY #30 tab.chew Metoprolol [Lopressor] 12.5 mg PO BID #60 tablet Rosuvastatin [Crestor] 40 mg PO HS #30 tablet Ticagrelor [Brilinta] 90 mg PO BID #60 tablet Home Medications: Ascorbic Acid [Vitamin C] 100 mg PO QAM 12/21/16 [History] Lisinopril [Zestril] 5 mg PO DAILY 12/21/16 [History] Multivitamin [Multivitamins] 1 cap PO QAM 12/21/16 [History] Ubidecarenone [Coq10] 50 mg PO QAM 12/21/16 [History] Aspirin 81 mg PO DAILY #30 tab.chew 12/22/16 [Rx] Metoprolol [Lopressor] 12.5 mg PO BID #60 tablet 12/22/16 [Rx] Rosuvastatin [Crestor] 40 mg PO HS #30 tablet 12/22/16 [Rx] Ticagrelor [Brilinta] 90 mg PO BID #60 tablet 12/22/16 [Rx] Allergies/Adverse Reactions: Allergies No Known Allergies Allergy (Verified 12/21/16 04:50) Procedures/tests Complete & Pending: Procedures Performed prior 72 hours Category Date Time Status CL Cardiac Catheterization [CL] Routine Lung Splitter 12/21/16 10:15 Completed ECG 12 lead ECG [ECG] Stat Y 12/21/16 08:04 Ordered EV echocardiogram Routine Y 12/22/16 08:18 Completed Date of admission: 12/21/16 18:37 Primary care physician: PCP NO Consults: 12/21/16 08:00 Consult to Cardiology [CONS] Routine Comment: Consulting Provider: Zacarias Sharif Reason for Consult: NSTEMI Call Completed: Yes 12/21/16 11:43 Consult to Cardiac Rehabilitation-Phase1 [CONS] Routine Comment: Reason for Consult: post op cath Call Completed: Yes Discharging clinician: Brooke Anderson Anticipated date of discharge: 12/22/16 - Patient Status Disposition: Home, Self-Care Condition: Good Functional capacity at discharge: independent ambulation Overall status at discharge: patient is back to baseline - Discharge Instructions Instructions: Metoprolol (By mouth), Aspirin (By mouth), Rosuvastatin (By mouth ), Ticagrelor (By mouth), Chest Pain (DC), Heart Healthy Diet (DC) Follow Up With: NO,PCP [Primary Care Provider] - Additional Instructions: F/up with [facility] in 1-2 weeks F/up with PCP in 2 weeks RISK FACTORS: STOP SMOKING: If you smoke, STOP. Smoking or tobacco use significantly increases your risk of heart disease because nicotine causes the arteries to narrow or constrict. It also causes fats to stick to the artery. Your chances of having a heart attack are greatly increased if you continue to smoke. For more information, call the education line for smoking cessation 2-761-HTWVPFP EAT A LOW FAT/CHOLESTEROL/SODIUM DIET: This diet may help reduce your chances of having a heart attack. LIFTING: Avoid lifting anything more than 10 pounds for 5-7 days Prior to straining, laughing, sneezing and/or coughing, apply manual pressure directly over insertion site. ACTIVITY: You may walk or climb stairs as tolerated You can resume sexual activity as tolerated In general, you are encouraged to engage in a minimum of 30 minutes or more of moderate intensity physical activity, such as brisk walking, daily or at least 3 -4 times weekly BATHING Do not submerge the site into water (bath tub, hot tub, swimming pool) for 1 week. This can be a source for infection into the blood stream. You may shower after 24 hours SITE CARE: After 24 hours, you may remove the dressing and leave the site open to air. Keep the site clean and dry. Clean gently and pat dry. You can expect bruising and tenderness that gradually resolve within a week or two. Return to work as instructed per your physician Resume driving as instructed per physician Keep all scheduled follow up appointments Resume medications as instructed IMPORTANT: If prescribed a Platelet Aggregation Inhibitor such as, Plavix, Brilinta or Effient: Duration of therapy is minimum one year These medications are often used in combination with Aspirin in prevention of future heart attacks Never discontinue unless consult with your Cell Stripper STROKE (CVA) Risk factors for a stroke are: Age, cigarette smoking, diabetes, excessive alcohol consumption, family history, high blood pressure, overweight, physical inactivity, prior stroke, heart attack, diagnosis of carotid artery stenosis or other artery disease. Warning signs: Sudden numbness or weakness of the face, arm or leg; especially on one side of the body, sudden confusion, trouble speaking or understanding, sudden trouble seeing in one or both eyes, sudden trouble walking, dizziness, loss of balance or coordination, sudden severe headache with no cause. Call 911 or go to the Emergency Room. CONGESTIVE HEART FAILURE: If you have been diagnosed with Congestive Heart Failure (CHF) and your symptoms return, make an appointment with your physician Weigh yourself daily. Notify your physician if you have a weight gain of two or more pounds in one day or five or more pounds in one week. If you experience any difficulty breathing, please call 911 BLEEDING: Although the risk of bleeding is minimal, it can happen. If you have any bleeding from the site, apply firm pressure above the puncture site for 10-15 minutes. If the bleeding does not stop, continue manual pressure and call 911 Contact your physician if: You develop a fever greater than 101 degrees Fahrenheit Your site becomes reddened or has any drainage You have an increase in pain or burning at the site or if a large knot forms at the site. If you experience chest pain, shortness of breath, dizziness, or extreme tiredness, stop the activity and rest. Please notify your physicians office if you experience any of these symptoms and they are not relieved by rest please call 911! - Diet and Activity Activity: resume usual activities as tolerated Diet: low fat, low cholesterol, low salt diet Hospital course: Mr. Bear is a 66 year old male with history of coronary artery disease, chronic smoker who was admitted with ongoing chest pain. He was noted to have EKG changes of new T-wave inversions in septal leads along with troponin leak. He was initially started on IV heparin drip along with aspirin and statin for possible non-ST elevation [place]. Cardiology was consulted and patient underwent left heart catheterization and received one drug-eluting stent to mid RCA. Patient recovered well after the procedure and remained hemodynamically stable and asymptomatic. Medication compliance with dual antiplatelet therapy and statin have been reinforced. He reports intolerance to Lipitor several years back with myalgias. He is being discharged on Zocor at this time, which may need to be changed to a different medication if he cannot yet to tolerate. Lipid profile shows LDL of 147. Echocardiogram was done which showed preserved ejection fraction with no acute abnormality. Patient is cleared for discharge by cardiology with one to two- week outpatient follow-up. Smoking cessation and abstinence from alcohol have been reinforced along with dietary modifications and exercise and he verbalized understanding. - Time Spent with Patient Total time spent providing and/or coordinating discharge services: Greater than 30 minutes (45 min) - Constitutional Vitals: Temp Pulse Resp BP Pulse Ox 97.5 F L 88 20 164/98 95 12/22/16 07:44 12/22/16 07:51 12/22/16 07:51 12/22/16 07:44 12/22/16 07:51 General appearance: Present: cooperative, A&O X 3, answers questions appropriately - Respiratory Respiratory exam: Present: CTAB. Absent: accessory muscle use, rales, rhonchi, wheezes - Cardiovascular Cardiovascular exam: Present: RRR, +S1, +S2. Absent: diastolic murmur, gallop, rubs, systolic murmur
--- NOTE | 2016-12-22 09:18 | Cardiology Progress Note ---
Date of Encounter: 12/22/16 Time of Encounter: 09:16 Assessment and Plan (1) NSTEMI (non-ST elevated myocardial infarction) Current Visit: Yes Status: Acute Troponin 0.11, 0.35. S/P LHC yesterday that revealed severe 1 vessel CAD, EF 55%. Successful PTCA/ ROSA placement in mid RCA. Echo EF 55-60%. Recommend DAPT (ASA and Brilinta) x 1 year uninterrupted. Pt verbalizes understanding. Continue BB, Statin. Reports hx of myalgias on Atorvastatin, so currently on Simvastatin. Pt chest pain free s/p LHC. Left femoral access site healing well--mild-moderate amount of ecchymosis noted , but no bleeding or hematoma. Cardiology is singing off. Reconsult PRN. Follow-up in 1 week--will coordinate through office. (2) CAD (coronary artery disease) Current Visit: Yes Status: Acute ASA, Brilinta, Statin, BB. Qualifiers: Coronary Disease-Associated Artery/Lesion type: [place] artery [place] vs. transplanted heart: [place] heart Associated angina: with unstable angina Qualified Code(s): I25.110 - Atherosclerotic heart disease of [place] coronary artery with unstable angina pectoris (3) HTN (hypertension) Current Visit: Yes Status: Chronic Systolic BP 160s this AM. Resume home lisinopril 5mg daily. Continue BB. Qualifiers: Hypertension type: essential hypertension Qualified Code(s): I10 - Essential (primary) hypertension (4) Iliac artery aneurysm, right Current Visit: Yes Status: Chronic Testing reviewed from 2014--CT ABD/Pelvis showed aneurysmal dilation of right common iliac artery 3.8 x 3.9. US showed it was partially thrombosed. Saw vascular 10/2015 to follow-up on results. No follow-up since then. Was supposed to have had a repeat CT 6 months from that time. Recommend follow-up with vascular as outpt. Discussion w patient/family: The assessment and plan as outlined above was discussed with the patient and/or family members who expressed understanding and agreement. All questions were answered. Thank you for involving us in the care of your patient. Please call with any questions. I will discuss all the above with Dr. Cherry and make changes as necessary. Subjective Principal diagnosis: NSTEMI Interval history: Pt denies any chest pain or dyspnea overnight. LHC yesterday revealed severe 1 vessel CAD, EF 55%, Successful PTCA/ROSA to mid RCA. Echo EF 55-60%. Troponin 0.11, 0.35. Renal function stable. Objective Vital Signs, Last 4 Hours Temp Pulse Resp BP Pulse Ox 12/22/16 07:51 88 20 95 12/22/16 07:44 97.5 F L 70 16 164/98 97 Vital Signs Temp Pulse Resp BP Pulse Ox 12/22/16 07:51 88 20 95 12/22/16 07:44 97.5 F L 70 16 164/98 97 12/22/16 04:45 97.7 F 74 16 147/96 97 12/21/16 23:41 98.5 F 75 14 121/84 97 12/21/16 19:14 97.6 F 85 16 124/84 97 12/21/16 15:54 97.7 F 91 16 132/56 97 12/21/16 15:10 61 12/21/16 15:00 99 138/89 12/21/16 14:30 101 138/99 12/21/16 13:45 82 124/87 12/21/16 13:30 88 127/95 12/21/16 13:15 86 119/92 12/21/16 13:00 78 119/84 12/21/16 12:42 78 124/78 12/21/16 12:05 61 12/21/16 12:00 97.4 F L 78 16 126/97 95 Intake and Output 12/21/16 12/22/16 12/22/16 23:59 07:59 15:59 Intake Total 240 / 240 240 / 240 240 / 240 Balance 240 / 240 240 / 240 240 / 240 Intake: Oral 240 / 240 240 / 240 240 / 240 Other: Meal Dinner Breakfast Percent of Meal Consumed 90% 100% # Voids 1 Weight 69.2 kg Patient Weight 12/22/16 23:59 Weight 69.2 kg General: Conversant, No Apparent Distress HEENT: Atraumatic, Normocephaly, Mucus Membranes Moist Neck: No JVD, Normal carotid pulses Cardiac: Reg Rate and Rhythm, Normal S1 and S2, No Murmur Lungs: Normal Breath Sounds, No Wheeze, Rales, Rhonchi Neuro: Alert and responsive, No focal deficits noted Abdomen: Soft, Non-Tender Skin: Other (left femoral access site healing well--mild ecchymosis noted, no bleeding or hematoma.) Musculoskeletal: No Chest Wall Tenderness Extremities: No Clubbing, No Cyanosis, No Edema, Normal Pulses Results 12/22/16 08:09 12/22/16 08:09 Lab Results 12/21/16 12/22/16 12/22/16 08:22 07:20 07:20 WBC 7.3 Hgb 14.0 Hct 40.4 Plt Count 122 L Sodium 136 Potassium 4.3 Chloride 106 Carbon Dioxide 23 BUN 13 Creatinine 1.05 Glucose 102 H Calcium 8.5 L Troponin I 0.35 H* 12/22/16 12/22/16 08:09 08:09 WBC 7.7 Hgb 14.6 Hct 42.9 Plt Count 129 L Sodium 137 Potassium 4.0 Chloride 104 Carbon Dioxide 25 BUN 12 Creatinine 1.09 Glucose 100 H Calcium 8.8 Troponin I Short CBC 12/22/16 12/22/16 Range/Units 08:09 07:20 WBC 7.7 7.3 (4.3-11.1) K/mcL Hgb 14.6 14.0 (12.9-16.9) g/dL Hct 42.9 40.4 (37.5-50.1) % Plt Count 129 L 122 L (140-400) K/mcL Neutrophils # 4.8 4.5 (1.6-8.9) K/mcL BMP 12/22/16 12/22/16 Range/Units 08:09 07:20 Sodium 137 136 (136-145) mEq/L Potassium 4.0 4.3 (3.5-4.5) mEq/L Chloride 104 106 (98-109) mEq/L Carbon Dioxide 25 23 (19-29) mEq/L BUN 12 13 (8-26) mg/dL Creatinine 1.09 1.05 (0.72-1.25) mg/dL Glucose 100 H 102 H (70-99) mg/dL Calcium 8.8 8.5 L (8.6-10.8) mg/dL Cardiac Enzymes 12/21/16 Range/Units 08:22 Troponin I 0.35 H* (0-0.03) ng/mL Active Medications Acetaminophen (Tylenol) 650 mg PO Q6HR PRN PRN Reason: Mild Pain (1-3) Stop: 06/22/17 08:06 Aspirin (Aspirin) 81 mg PO DAILY [facility] Stop: 06/23/17 09:01 Last Admin: 12/22/16 07:45 Dose: 81 mg Docusate Sodium (Colace) 100 mg PO BID PRN PRN Reason: Constipation Stop: 06/22/17 08:06 Sodium Chloride (0.9 % Sodium Chloride) 1,000 mls @ 50 mls/hr IVC .Q20H [facility] Stop: 06/22/17 08:01 Last Admin: 12/21/16 08:21 Dose: 50 mls/hr Lorazepam (Ativan) 1 mg IVP Q4HR PRN PRN Reason: Alcohol Withdrawal Stop: 06/22/17 12:01 Magnesium Hydroxide (Milk Of Magnesia Conc) 10 ml PO DAILY PRN PRN Reason: Indigestion Stop: 06/22/17 08:06 Metoprolol Tartrate (Lopressor) 12.5 mg PO BID [facility] Stop: 06/22/17 09:01 Last Admin: 12/22/16 07:44 Dose: 12.5 mg Morphine Sulfate (Morphine Sulfate) 2 mg IVP Q4HR PRN PRN Reason: Chest Pain Stop: 06/22/17 08:45 Last Admin: 12/21/16 09:04 Dose: 2 mg Multivitamins/Calcium (Thera M Plus) 1 tab PO QAM [facility] Stop: 06/23/17 09:01 Last Admin: 12/22/16 07:44 Dose: 1 tab Naloxone HCl (Narcan) 0.4 mg IVP Q2MIN PRN PRN Reason: Opioid Reversal Stop: 06/22/17 08:06 Nicotine (Nicoderm) 21 mg TD DAILY [facility] PRN Reason: Protocol Stop: 06/22/17 09:01 Last Admin: 12/22/16 07:45 Dose: Not Given Ondansetron HCl (Zofran) 4 mg IVP Q8HR PRN PRN Reason: Nausea And Vomiting Stop: 06/22/17 08:06 Simvastatin (Zocor) 40 mg PO QPM [facility] PRN Reason: Protocol Stop: 06/22/17 18:01 Last Admin: 12/21/16 17:08 Dose: Not Given Ticagrelor (Brilinta) 90 mg PO BID [facility] Stop: 06/22/17 21:01 Last Admin: 12/22/16 07:44 Dose: 90 mg - Imaging and Cardiology Echo: report reviewed (EF 55-60%.) Cardiac cath: report reviewed (Severe 1V CAD s/p PTCA/ROSA to mid RCA.) - EKG Interpretation EKG results cardiology: other (12 hour tele AVG HR 72, no significant pauses or arrhythmias.) Consult Discharge Plan - Plan Referrals: NO,PCP [Primary Care Provider] -
== END 2016-12-22 10:00 | disposition home or self-care (01) | DRG 247 ==
LOC: 2NENU → 2NNU 13:07 → SUATTDRO 18:37
PROVIDERS: ADMIT Internal Medicine; ATTEND Internal Medicine